=== PATIENT | female | born 1955 | race Caucasian/White ===

== ENCOUNTER 2021-02-17 15:55 | Inpatient (IN) | payer OTHER ==
[~2021-02-17] VITALS: Ht 172.7 cm; Wt 129.3 kg
[2021-02-17] MEDS ORDERED: WIXELA 100-501 EACH (16:25)
[2021-02-17] MEDS ORDERED: LACTULOSE20 GM/30 M PO (16:25)
[2021-02-17] MEDS ORDERED: CO Q-10100 MG PO (16:25)
[2021-02-17] MEDS ORDERED: LISINOPRIL10 MG PO (16:25)
[2021-02-17] MEDS ORDERED: HYDROCHLOROTHIA25 MG PO (16:25)
[2021-02-17] MEDS ORDERED: ULTRAM50 MG PO (16:25)
[2021-02-17] MEDS ORDERED: ASPIRIN81 MG PO (16:25)
[2021-02-17] MEDS ORDERED: VITAMIN D350 MCG PO (16:25)
[2021-02-17] MEDS ORDERED: NABUMETONE500 MG PO (16:25)
[2021-02-17] MEDS ORDERED: ARAVA20 MG PO (16:25)
[2021-02-17 16:40] LABS: BASOPHILS # (AUTO) 0.1 (0.0-0.1); BASOPHILS % 0.4 % (0.0-1.0); EOSINOPHILS # (AUTO) 0.1 (0.0-0.4); EOSINOPHILS % 0.5 % (0.0-6.0); HEMATOCRIT 44.1 % (34.2-44.1); HEMOGLOBIN 14.4 g/dL (12.0-16.0); LYMPHOCYTES # (AUTO) 3.3 (1.0-3.2); LYMPHOCYTES % 23.5 % (18.0-39.1); MEAN CORPUSCULAR HEMOGLOBIN 29.1 pg (28-32); MEAN CORPUSCULAR HGB CONC 32.7 g/dL (31-35); MEAN CORPUSCULAR VOLUME 89.3 fL (81-99); MONOCYTES # (AUTO) 0.7 (0.2-0.8); MONOCYTES % 4.9 % (4.4-11.3); NEUTROPHILS # (AUTO) 9.9 (2.1-6.9); NEUTROPHILS % 70.1 % (38.7-80.0); PLATELET COUNT 385 x10e3/uL (140-360); RED BLOOD COUNT 4.94 x10e6/uL (3.6-5.1); RED CELL DISTRIBUTION WIDTH 13.5 % (11.7-14.4)
[2021-02-17] MEDS ORDERED: ONDANSETRON HCL INJ 2MG/ML 2ML 2 MG/ML VIAL IV STA (16:43)
[2021-02-17] MEDS ORDERED: SODIUM CHLORIDE 0.9% 1000ML 1,000 ML IV STA (16:43)
[2021-02-17] MEDS ORDERED: HYDROMORPHONE 1MG/1ML INJ IV STA (16:43)
[2021-02-17 16:52] LABS: ALANINE AMINOTRANSFERASE 17 IU/L (0-55); ALBUMIN 3.7 g/dL (3.5-5.0); ALBUMIN/GLOBULIN RATIO 0.8 (0.8-2.0); ALKALINE PHOSPHATASE 99 IU/L (40-150); ANION GAP 20.8 mmol/L (8-16); BLOOD UREA NITROGEN 17 mg/dL (7-26); BUN/CREATININE RATIO 21 (6-25); CALCIUM 9.6 mg/dL (8.4-10.2); CARBON DIOXIDE 24 mmol/L (22-29); CHLORIDE 94 mmol/L (98-107); CREATINE KINASE 66 IU/L (29-168); CREATININE, SERUM 0.82 mg/dL (0.57-1.11); EST GLOMERULAR FILTRATION RATE > 60 ML/MIN (60-); GLUCOSE 144 mg/dL (74-118); POTASSIUM 3.8 mmol/L (3.5-5.1); SODIUM 135 mmol/L (136-145)
[2021-02-17 16:53] LABS: AMYLASE 50 U/L (25-125); LIPASE 131 U/L (8-78)
[2021-02-17] MEDS ORDERED: ONDANSETRON HCL INJ 2MG/ML 2ML 2 MG/ML VIAL ONE (16:57)
[2021-02-17] MEDS ORDERED: SODIUM CHLORIDE 0.9% 1000ML 1,000 ML ONE (16:58)
[2021-02-17] MEDS ORDERED: IOPAMIDOL 370 MG/ML 200 ML INFUS..BTL INJ ONE (17:00)
[2021-02-17 17:14] LABS: CHOLESTEROL 272 MD/DL (0-199); HDL CHOLESTEROL 34 MG/DL (40-60); TRIGLYCERIDES 462 MG/DL (0-149)
[2021-02-17] MEDS ORDERED: PIPERACILLIN/TAZOBACTAM 3.375 GM in SODIUM CHLORIDE 0.9% 50ML 50 ML IV ONE (17:15)
[2021-02-17 17:56] LABS: CLARITY,URINE SL CLOUDY (CLEAR); COLOR,URINE YELLOW (YELLOW); LEUKOCYTE ESTERASE ,URINE NEGATIVE (NEGATIVE); NITRITE,URINE NEGATIVE (NEGATIVE); PROTEIN,URINE DIPSTICK NEGATIVE (NEGATIVE)
[2021-02-17 17:57] LABS: KETONES,URINE NEGATIVE (NEGATIVE); URINE UROBILINOGEN 0.2 mg/dL (0.2 - 1)
[2021-02-17 18:09] LABS: AMORPHOUS SEDIMENT,URINE MODERATE (FEW); BACTERIA,URINE MODERATE /HPF; EPITHELIAL CELLS,URINE MANY /LPF
[2021-02-17 20:00] VITALS: BP 120/66
[2021-02-17 20:15] VITALS: BP 120/66
[2021-02-17] MEDS: SODIUM CHLORIDE 0.9% 1000ML 1,000 ML IV SCH (20:29)
[2021-02-17 21:00] VITALS: BP 120/66
[2021-02-17] MEDS: HYDROMORPHONE 1MG/1ML INJ IV PRN (22:52)
[2021-02-17] MEDS: ONDANSETRON HCL INJ 2MG/ML 2ML 2 MG/ML VIAL IV PRN (22:52)
[2021-02-18] VITALS (8 sets, daily range): BP systolic 118–142; BP diastolic 59–77
[2021-02-18 03:13] LABS: CREATINE KINASE MB 2.1 ng/mL (0-5.0)
[2021-02-18] MEDS: SODIUM CHLORIDE 0.9% 1000ML 1,000 ML IV SCH (05:00)
[2021-02-18 06:01] LABS: BASOPHILS % 0.4 % (0.0-1.0); EOSINOPHILS # (AUTO) 0.1 (0.0-0.4); EOSINOPHILS % 0.8 % (0.0-6.0); HEMATOCRIT 42.9 % (34.2-44.1); HEMOGLOBIN 13.5 g/dL (12.0-16.0); LYMPHOCYTES # (AUTO) 1.9 (1.0-3.2); LYMPHOCYTES % 19.1 % (18.0-39.1); MEAN CORPUSCULAR HEMOGLOBIN 29.2 pg (28-32); MEAN CORPUSCULAR HGB CONC 31.5 g/dL (31-35); MEAN CORPUSCULAR VOLUME 92.7 fL (81-99); MONOCYTES # (AUTO) 0.5 (0.2-0.8); MONOCYTES % 5.4 % (4.4-11.3); NEUTROPHILS # (AUTO) 7.3 (2.1-6.9); PLATELET COUNT 300 x10e3/uL (140-360); RED BLOOD COUNT 4.63 x10e6/uL (3.6-5.1); RED CELL DISTRIBUTION WIDTH 13.7 % (11.7-14.4)
[2021-02-18 06:23] LABS: ALANINE AMINOTRANSFERASE 17 IU/L (0-55); ALBUMIN 3.4 g/dL (3.5-5.0); ALBUMIN/GLOBULIN RATIO 0.8 (0.8-2.0); ALKALINE PHOSPHATASE 85 IU/L (40-150); AMYLASE 43 U/L (25-125); ANION GAP 18.2 mmol/L (8-16); BLOOD UREA NITROGEN 13 mg/dL (7-26); BUN/CREATININE RATIO 18 (6-25); CALCIUM 8.9 mg/dL (8.4-10.2); CARBON DIOXIDE 25 mmol/L (22-29); CHLORIDE 97 mmol/L (98-107); CREATININE, SERUM 0.72 mg/dL (0.57-1.11); EST GLOMERULAR FILTRATION RATE > 60 ML/MIN (60-); GLUCOSE 142 mg/dL (74-118); LIPASE 105 U/L (8-78); POTASSIUM 4.2 mmol/L (3.5-5.1); SODIUM 136 mmol/L (136-145)
[2021-02-18] MEDS: ONDANSETRON HCL INJ 2MG/ML 2ML 2 MG/ML VIAL IV PRN ×2 (08:07→12:29)
[2021-02-18] MEDS: HYDROMORPHONE 1MG/1ML INJ IV PRN ×2 (08:07→12:29)
[2021-02-18 10:01] LABS: CREATINE KINASE MB 1.9 ng/mL (0-5.0)
[2021-02-18] MEDS: LACTATED RINGER'S 1,000 ML INJ SCH (11:15)
[2021-02-18] MEDS: PIPERACILLIN/TAZOBACTAM 3.375 GM in SODIUM CHLORIDE 0.9% 50ML 50 ML IV SCH ×2 (14:30→22:58)
[2021-02-18] MEDS ORDERED: ONDANSETRON HCL INJ 2MG/ML 2ML 2 MG/ML VIAL ONE (23:02)
[2021-02-18] MEDS ORDERED: Pantoprazole IV 50 ML IV ONE (23:03)
[2021-02-18] MEDS ORDERED: HYDROMORPHONE 1MG/1ML INJ ONE (23:03)
[2021-02-18] MEDS ORDERED: LACTATED RINGER'S 1,000 ML ONE (23:03)
[2021-02-18] MEDS ORDERED: PIPERACILLIN/TAZOBACTAM 3.375 GM VIAL ONE (23:03)
[2021-02-19] VITALS (7 sets, daily range): BP systolic 108–148; BP diastolic 55–80
[2021-02-19] MEDS: LACTATED RINGER'S 1,000 ML INJ SCH ×2 (00:35→14:19)
[2021-02-19] MEDS ORDERED: HYDROMORPHONE 1MG/1ML INJ ONE (05:01)
[2021-02-19] MEDS ORDERED: PIPERACILLIN/TAZOBACTAM 3.375 GM VIAL ONE (05:01)
[2021-02-19] MEDS: HYDROMORPHONE 1MG/1ML INJ IV PRN (05:01)
[2021-02-19] MEDS ORDERED: ONDANSETRON HCL INJ 2MG/ML 2ML 2 MG/ML VIAL ONE (05:01)
[2021-02-19] MEDS: ONDANSETRON HCL INJ 2MG/ML 2ML 2 MG/ML VIAL IV PRN ×2 (05:01→16:52)
[2021-02-19] MEDS ORDERED: SODIUM CHLORIDE 0.9% 50ML 50 ML ONE (05:02)
[2021-02-19] MEDS: PIPERACILLIN/TAZOBACTAM 3.375 GM in SODIUM CHLORIDE 0.9% 50ML 50 ML IV SCH ×3 (06:08→22:01)
[2021-02-19] MEDS: FENOFIBRATE 145 MG TAB PO SCH (08:54)
[2021-02-20] VITALS (7 sets, daily range): BP systolic 117–151; BP diastolic 67–88
[2021-02-20 05:30] LABS: BASOPHILS % 0.5 % (0.0-1.0); EOSINOPHILS # (AUTO) 0.1 (0.0-0.4); EOSINOPHILS % 0.7 % (0.0-6.0); HEMATOCRIT 39.5 % (34.2-44.1); HEMOGLOBIN 12.4 g/dL (12.0-16.0); LYMPHOCYTES # (AUTO) 1.9 (1.0-3.2); MEAN CORPUSCULAR HEMOGLOBIN 29.2 pg (28-32); MEAN CORPUSCULAR HGB CONC 31.4 g/dL (31-35); MEAN CORPUSCULAR VOLUME 92.9 fL (81-99); MONOCYTES # (AUTO) 0.5 (0.2-0.8); MONOCYTES % 5.5 % (4.4-11.3); NEUTROPHILS # (AUTO) 6.1 (2.1-6.9); PLATELET COUNT 248 x10e3/uL (140-360); RED BLOOD COUNT 4.25 x10e6/uL (3.6-5.1); RED CELL DISTRIBUTION WIDTH 13.2 % (11.7-14.4)
[2021-02-20] MEDS: LACTATED RINGER'S 1,000 ML INJ SCH ×2 (05:53→17:26)
[2021-02-20] MEDS: PIPERACILLIN/TAZOBACTAM 3.375 GM in SODIUM CHLORIDE 0.9% 50ML 50 ML IV SCH ×3 (05:53→23:37)
[2021-02-20 06:06] LABS: ANION GAP 15.7 mmol/L (8-16); BLOOD UREA NITROGEN 12 mg/dL (7-26); BUN/CREATININE RATIO 17 (6-25); CALCIUM 8.7 mg/dL (8.4-10.2); CARBON DIOXIDE 30 mmol/L (22-29); CHLORIDE 95 mmol/L (98-107); CREATININE, SERUM 0.72 mg/dL (0.57-1.11); EST GLOMERULAR FILTRATION RATE > 60 ML/MIN (60-); GLUCOSE 157 mg/dL (74-118); LIPASE 80 U/L (8-78); POTASSIUM 3.7 mmol/L (3.5-5.1); SODIUM 137 mmol/L (136-145)
[2021-02-20] MEDS: FENOFIBRATE 145 MG TAB PO SCH (09:26)
[2021-02-20] MEDS: HYDROMORPHONE 1MG/1ML INJ IV PRN (16:06)
[2021-02-21] VITALS (8 sets, daily range): BP systolic 124–158; BP diastolic 64–85
[2021-02-21] MEDS ORDERED: DICYCLOMINE HCL 20 MG TAB PO STA (01:13)
[2021-02-21 04:56] LABS: BASOPHILS % 0.5 % (0.0-1.0); EOSINOPHILS # (AUTO) 0.1 (0.0-0.4); EOSINOPHILS % 1.4 % (0.0-6.0); HEMATOCRIT 37.3 % (34.2-44.1); HEMOGLOBIN 11.8 g/dL (12.0-16.0); LYMPHOCYTES # (AUTO) 1.6 (1.0-3.2); LYMPHOCYTES % 19.8 % (18.0-39.1); MEAN CORPUSCULAR HEMOGLOBIN 29.4 pg (28-32); MEAN CORPUSCULAR HGB CONC 31.6 g/dL (31-35); MEAN CORPUSCULAR VOLUME 92.8 fL (81-99); MONOCYTES # (AUTO) 0.4 (0.2-0.8); MONOCYTES % 5.5 % (4.4-11.3); NEUTROPHILS # (AUTO) 5.7 (2.1-6.9); NEUTROPHILS % 72.4 % (38.7-80.0); PLATELET COUNT 244 x10e3/uL (140-360); RED BLOOD COUNT 4.02 x10e6/uL (3.6-5.1); RED CELL DISTRIBUTION WIDTH 13.4 % (11.7-14.4)
[2021-02-21 05:25] LABS: ANION GAP 13.7 mmol/L (8-16); BLOOD UREA NITROGEN 5 mg/dL (7-26); BUN/CREATININE RATIO 7 (6-25); CALCIUM 8.9 mg/dL (8.4-10.2); CARBON DIOXIDE 32 mmol/L (22-29); CHLORIDE 101 mmol/L (98-107); EST GLOMERULAR FILTRATION RATE > 60 ML/MIN (60-); GLUCOSE 131 mg/dL (74-118); MAGNESIUM 1.7 MG/DL (1.3-2.1); PHOSPHORUS 2.8 MG/DL (2.3-4.7); POTASSIUM 3.7 mmol/L (3.5-5.1); SODIUM 143 mmol/L (136-145)
[2021-02-21 05:39] LABS: AMYLASE 31 U/L (25-125); LIPASE 85 U/L (8-78)
[2021-02-21] MEDS: LACTATED RINGER'S 1,000 ML INJ SCH ×2 (06:00→10:53)
[2021-02-21] MEDS: PIPERACILLIN/TAZOBACTAM 3.375 GM in SODIUM CHLORIDE 0.9% 50ML 50 ML IV SCH ×3 (06:18→21:53)
[2021-02-21] MEDS: FENOFIBRATE 145 MG TAB PO SCH (09:17)
[2021-02-21] MEDS: DICYCLOMINE HCL 10 MG CAP PO SCH ×3 (09:17→21:22)
[2021-02-21] MEDS: HYDROCHLOROTHIAZIDE 25 MG TAB PO SCH (17:39)
[2021-02-21] MEDS: LISINOPRIL 10 MG TAB PO SCH (17:39)
[2021-02-21] MEDS: HYDROMORPHONE 1MG/1ML INJ IV PRN (19:49)
[2021-02-21] MEDS: ONDANSETRON HCL INJ 2MG/ML 2ML 2 MG/ML VIAL IV PRN (19:49)
[2021-02-22 00:32] VITALS: BP 123/78
[2021-02-22] MEDS: LACTATED RINGER'S 1,000 ML INJ SCH (01:31)
[2021-02-22 04:33] VITALS: BP 143/78
[2021-02-22] MEDS: PIPERACILLIN/TAZOBACTAM 3.375 GM in SODIUM CHLORIDE 0.9% 50ML 50 ML IV SCH ×2 (05:42→14:00)
[2021-02-22] MEDS ORDERED: SALMETEROL/FLUTICASONE 100/50 INH SCH (06:00)
[2021-02-22 07:25] LABS: ANION GAP 15.8 mmol/L (8-16); BLOOD UREA NITROGEN 6 mg/dL (7-26); BUN/CREATININE RATIO 8 (6-25); CALCIUM 9.5 mg/dL (8.4-10.2); CARBON DIOXIDE 31 mmol/L (22-29); CHLORIDE 100 mmol/L (98-107); CREATININE, SERUM 0.76 mg/dL (0.57-1.11); EST GLOMERULAR FILTRATION RATE > 60 ML/MIN (60-); GLUCOSE 134 mg/dL (74-118); LIPASE 75 U/L (8-78); POTASSIUM 3.8 mmol/L (3.5-5.1); SODIUM 143 mmol/L (136-145)
[2021-02-22 07:44] VITALS: BP 120/76
[2021-02-22 08:30] VITALS: BP 120/76
[2021-02-22] MEDS: FENOFIBRATE 145 MG TAB PO SCH (08:44)
[2021-02-22] MEDS: LISINOPRIL 10 MG TAB PO SCH (08:44)
[2021-02-22] MEDS: DICYCLOMINE HCL 10 MG CAP PO SCH ×2 (08:44→15:00)
[2021-02-22] MEDS: HYDROCHLOROTHIAZIDE 25 MG TAB PO SCH (08:44)
[2021-02-22] MEDS ORDERED: PHE/SHARK LIVER OIL/COCOA BUT 24 EA SUPP RC PRN (09:45)
[2021-02-22 11:40] VITALS: BP 129/75
== END 2021-02-22 16:04 | disposition home or self-care (01) | DRG 439 ==
LOC: ER 16:15 → ERHOLD 19:06 → MED/SURG2 19:32 → UNDODISIN 02-18 20:25
PROVIDERS: ADMIT Internal Medicine; ATTEND Internal Medicine
DX: K85.90 Acute pancreatitis without necrosis or infection, unspecified (principal); Z68.41 Body mass index [BMI] 40.0-44.9, adult; E66.01 Morbid (severe) obesity due to excess calories; I10 Essential (primary) hypertension; J44.9 Chronic obstructive pulmonary disease, unspecified; F17.200 Nicotine dependence, unspecified, uncomplicated; K76.0 Fatty (change of) liver, not elsewhere classified; R19.7 Diarrhea, unspecified
CPT/HCPCS: 36415; 71045; 74177; 80048; 80053; 80061; 81001; 82150; 82550; 82553; 83605; 83690; 83735; 83970; 84100; 84478; 84484; 85025; 86039; 86301; 87040; 87086; 93005; 94664; 96361; 99285; J1170; J2405; J2543; J7030; J7121; Q9967; U0002